=== PATIENT | female | born 1945 | race Caucasian/White ===

== ENCOUNTER 2020-12-26 17:41 | Outpatient (RCR) | payer MEDICARE, BC, SELFPAY ==
[2020-12-26] MEDS: COVID-19 VACC, MRNA(PFIZER)/PF 30 MCG/0.3 ML SYRINGE IM (14:42)
[2021-01-16] MEDS: COVID-19 VACC, MRNA(PFIZER)/PF 30 MCG/0.3 ML SYRINGE IM (14:03)
== END 2021-04-01 23:59 ==
LOC: IMMUN 17:41
PROVIDERS: PCP Internal Medicine; Visit Provider Family Medicine
DX: Z23 Encounter for immunization (principal)
CPT/HCPCS: 0001A; 0002A; 91300